=== PATIENT | female | born 1960 | race Caucasian/White ===

== ENCOUNTER 2022-03-06 15:58 | Emergency (ER) | payer OTHER ==
[~2022-03-06] VITALS: Ht 162.6 cm; Wt 90.7 kg
[2022-03-06] MEDS ORDERED: LABETALOL HCL 200 MG TAB PO ONE (16:30)
[2022-03-06] MEDS ORDERED: cloNIDine HCL 0.1 MG TAB PO ONE (17:00)
[2022-03-06 17:31] LABS: Basophils # (auto) 0.1 10 ^3/uL (0-0.2); Basophils % (auto) 0.9 % (0.0-2.0); Eosinophils # (auto) 0.2 10 ^3/uL (0-0.8); Eosinophils % (auto) 1.6 % (0.0-7.0); Hematocrit 43.2 % (36.0-46.0); Hemoglobin 14.9 g/dL (12.2-16.2); Lymphocytes # (auto) 3.2 10 ^3/uL (0.4-5.4); Lymphocytes % (auto) 27.8 % (10.0-50.0); Mean Corpuscular Hemoglobin 30.3 pg (28.0-32.0); Mean Corpuscular Hgb Conc. 34.4 g/dL (32.0-36.0); Mean Corpuscular Volume 87.9 fL (80.0-100.0); Monocytes # (auto) 0.5 10 ^3/uL (0-1.3); Monocytes % (auto) 4.1 % (0.0-12.0); Neutrophils # (auto) 7.6 10 ^3/uL (1.6-8.6); Neutrophils % (auto) 65.6 % (37.0-80.0); Nucleated Red Blood Cells % 0.1 %; Red Blood Cells 4.91 10^6/uL (4.0-5.20); Red Cell Distribution Width 13.5 % (11.8-14.3); White Blood Cell 11.6 10^3/uL (4.4-10.8)
[2022-03-06 17:51] LABS: INR 0.98 (0.9-1.15); Partial Thromboplastin Time 26.2 sec (23.6-33.0)
[2022-03-06 17:52] LABS: Albumin 3.5 g/dL (3.4-5.0); BUN/Creatinine Ratio 6.7; Magnesium 2.3 mg/dL (1.6-2.6); Potassium 3.4 mmol/L (3.5-5.1)
[2022-03-06 17:55] LABS: Bilirubin, Total 0.2 mg/dL (0.2-1.0); Total Protein 7.3 g/dL (6.4-8.2)
[2022-03-06] MEDS ORDERED: hydrALAZINE HCL 20 MG/ML VL IV ONE (18:00)
[2022-03-06] MEDS ORDERED: OLME40TA26 PO (18:23)
[2022-03-06] MEDS ORDERED: ATEN-60 PO (18:23)
[2022-03-06 19:00] VITALS: BP 150/85
== END 2022-03-06 19:06 | disposition home or self-care (01) ==
LOC: ER 15:58
DX: E87.6 Hypokalemia (principal); I10 Essential (primary) hypertension; F17.210 Nicotine dependence, cigarettes, uncomplicated
CPT/HCPCS: 36415; 71045; 80053; 83735; 84484; 85025; 85610; 85730; 93005; 96374; 99285; J0360

== ENCOUNTER 2022-03-07 22:18 | Emergency (ER) | payer OTHER ==
[~2022-03-07] VITALS: Ht 162.6 cm; Wt 90.7 kg
[~2022-03-07 22:18] MED LIST: ATEN-60 PO; OLME40TA26 PO
[2022-03-07] MEDS ORDERED: cloNIDine HCL 0.1 MG TAB PO ONE (22:45)
[2022-03-07 23:19] LABS: Basophils # (auto) 0 10 ^3/uL (0-0.2); Basophils % (auto) 0.2 % (0.0-2.0); Eosinophils # (auto) 0.3 10 ^3/uL (0-0.8); Eosinophils % (auto) 2.9 % (0.0-7.0); Hematocrit 43.2 % (36.0-46.0); Hemoglobin 14.9 g/dL (12.2-16.2); Lymphocytes # (auto) 3.9 10 ^3/uL (0.4-5.4); Lymphocytes % (auto) 40.2 % (10.0-50.0); Mean Corpuscular Hemoglobin 30.8 pg (28.0-32.0); Mean Corpuscular Hgb Conc. 34.5 g/dL (32.0-36.0); Mean Corpuscular Volume 89.5 fL (80.0-100.0); Monocytes # (auto) 0.6 10 ^3/uL (0-1.3); Monocytes % (auto) 6.1 % (0.0-12.0); Neutrophils # (auto) 4.9 10 ^3/uL (1.6-8.6); Neutrophils % (auto) 50.6 % (37.0-80.0); Red Blood Cells 4.83 10^6/uL (4.0-5.20); Red Cell Distribution Width 13.3 % (11.8-14.3); White Blood Cell 9.7 10^3/uL (4.4-10.8)
[2022-03-07 23:34] LABS: Albumin 3.5 g/dL (3.4-5.0); Calcium 9.5 mg/dL (8.5-10.1); Potassium 4.1 mmol/L (3.5-5.1)
[2022-03-07 23:38] LABS: Bilirubin, Total 0.3 mg/dL (0.2-1.0); Total Protein 7.3 g/dL (6.4-8.2)
[2022-03-08 00:50] VITALS: BP 151/80
== END 2022-03-08 00:55 | disposition home or self-care (01) ==
LOC: ER 22:18
DX: I16.0 Hypertensive urgency (principal); F17.210 Nicotine dependence, cigarettes, uncomplicated; I10 Essential (primary) hypertension
CPT/HCPCS: 36415; 70450; 80053; 84484; 85025; 93005

== ENCOUNTER 2025-02-03 20:50 | Emergency (ER) | payer OTHER, MEDICARE ==
[~2025-02-03] VITALS: Ht 162.6 cm; Wt 70.0 kg
[~2025-02-03 20:50] MED LIST changes: -OLME40TA26 PO; +OLME40TA78 PO
[2025-02-03 22:36] VITALS: TEMP 98.9
[2025-02-03 22:41] VITALS: PULSE 76; RESP 19; O2SAT 97
[2025-02-03] MEDS: ASPirin 325 MG TAB PO ONE (22:41)
[2025-02-03] MEDS: cloNIDine HCL 0.1 MG TAB PO ONE (22:41)
[2025-02-03 22:58] LABS: Basophils # (auto) 0 10 ^3/uL (0-0.2); Basophils % (auto) 0.5 % (0.0-2.0); Eosinophils # (auto) 0.2 10 ^3/uL (0-0.8); Eosinophils % (auto) 2.3 % (0.0-7.0); Hematocrit 47.8 % (36.0-46.0); Lymphocytes % (auto) 38.3 % (10.0-50.0); Mean Corpuscular Hemoglobin 30.6 pg (28.0-32.0); Mean Corpuscular Hgb Conc. 33.4 g/dL (32.0-36.0); Mean Corpuscular Volume 91.7 fL (80.0-100.0); Monocytes # (auto) 0.6 10 ^3/uL (0-1.3); Monocytes % (auto) 6.1 % (0.0-12.0); Neutrophils # (auto) 5.6 10 ^3/uL (1.6-8.6); Neutrophils % (auto) 52.8 % (37.0-80.0); Nucleated Red Blood Cells % 0.1 %; Platelet Count (auto) 219 10^3/uL (140-450); Red Blood Cells 5.21 10^6/uL (4.0-5.20); Red Cell Distribution Width 13.2 % (11.8-14.3); White Blood Cell 10.6 10^3/uL (4.4-10.8)
[2025-02-03 23:07] LABS: Urine Bacteria FEW /hpf (None Seen); Urine Blood TRACE /uL (Negative); Urine Clarity Clear (Clear); Urine Color Light-Yellow (Yellow); Urine Protein, UAD Negative (Negative); Urine Specific Gravity 1.015 (1.001-1.035); Urine Squamous Epithelial Cell FEW /hpf (<5); Urine Urobilinogen Normal (Negative); Urine WBC 2 /HPF (0-5); Urine pH 5.5 (5.0-9.0)
--- NOTE | 2025-02-03 23:09 | DVH ---
EXAM: XY CHEST PORTABLE DATE OF SERVICE: 02/03/2025 10:51 PM ORDERING PHYSICIAN: DORYS NINO REASON FOR EXAM: cp TECHNIQUE: Single frontal view of the chest COMPARISON: CHEST PORTABLE on DOS: 03/06/22 Findings: Lungs are well expanded without infiltrates or effusions. Heart is normal in size. Trachea is midline patient has had an anterior fusion of the cervical spine. IMPRESSION: 1. No acute findings
[2025-02-03 23:32] LABS: Sodium 140 mmol/L (136-145)
[2025-02-03 23:33] LABS: Anion Gap 9 (5-15); Calcium 10.2 mg/dL (8.7-10.4); Carbon Dioxide 22 mmol/L (20-31)
[2025-02-03 23:38] LABS: Blood Urea Nitrogen 13 mg/dL (9-23); Glucose 93 mg/dL (74-106)
[2025-02-03 23:39] LABS: Chloride 109 mmol/L (98-107); Potassium 3.5 mmol/L (3.5-5.1)
[2025-02-04 00:02] VITALS: BP 184/75
--- NOTE | 2025-02-04 00:17 | ED.PDOC ---
History of Present Illness HPI Comments 64 y/o F, with a history of depression, HTN, and tobacco abuse, presents with c/o HTN and chest-wall pain, today. Patient endorses on noticing her blood pressure being elevated in addition to unprovoked onset of chest pain, today, after experiencing "hot flashes, fogged thoughts, and pressure-like headaches" for the past 2x days. Patient admits to being stressed, lately, in addition running out of her 50mg Atenolol medication she takes once per day. She denies any current shortness of breath, headache, vision or speech changes, nausea, vomiting, or other associated symptoms or modifiers at this time. Chief Complaint: High Blood Pressure Time Seen by MD: 22:15 Primary Care Provider: Emerson Mckeon Notes: Nurses Notes, Medications, Allergies Allergies: Coded Allergies: NO KNOWN ALLERGIES (Unverified , 03/06/22) Home Meds Active Scripts Atenolol (Atenolol) 25 Mg Tab, 1 TAB PO DAILY for 30 Days, #30 TAB 5 Refills Prov:CARLO KELLY MD 03/06/22 Olmesartan Medoxomil (Benicar) 40 Mg Tab, 1 TAB PO DAILY for 30 Days, #30 TAB 5 Refills Prov:CARLO KELLY MD 03/06/22 Information Source: Patient Mode of Arrival: Ambulatory Past Medical History PAST MEDICAL HISTORY: Depression, HTN Surgical History: Denies all surgeries NEGATIVE DEVELOPER History: Denies all NEGATIVE DEVELOPER Hx Family History Family History: Reviewed,noncontributory to illness Social History Smoker: Cigarettes Alcohol: Occasionally Drugs: Denies Drug Use Lives In: Home All Other Systems: Reviewed and Negative (Comprehensive systems review obtained and negative except for what is stated in the HPI.) Physical Exam General Appearance: Normal, Other (tearful) HEENT: Normal ENT Inspection, Pharynx Normal, TMs Normal Neck: Full Range of Motion, Non-Tender, Normal, Normal Inspection Respiratory: Chest Non-Tender, Lungs Clear, No Accessory Muscle Use, No Respiratory Distress, Normal Breath Sounds Cardiovascular: No Edema, No JVD, No Murmur, No Gallop, Normal Peripheral Pulses, Regular Rate/Rhythm Breast Exam: Deferred Gastrointestinal: No Organomegaly, Non Tender, No Pulsatile Mass, Normal Bowel Sounds, Soft Genitalia: Deferred Pelvic: Deferred Rectal: Deferred Extremities: No calf tenderness, Normal capillary refill, Normal inspection, Normal range of motion, Non-tender, No pedal edema Musculoskeletal : Apperance: Normal Neurologic: Alert, seafood clerk II-XII nml as Tested, No Motor Deficits, Normal Affect, Normal Mood, No Sensory Deficits Cerebellar Function: Normal Reflexes: Normal Skin: Dry, Normal Color, Warm Lymphatic: No Adenopathy Was a procedure done? Was a procedure done?: No Differential Dx Considerations may include: HTN emergency, HTN essential, medication noncompliance, LA, PE, ACS, among others X-Ray, Labs, Meds, VS Vital Signs Date Time Temp Pulse Resp B/P (MAP) Pulse Ox O2 Delivery O2 Flow Rate FiO2 02/04/25 00:04 185/87 02/04/25 00:02 184/75 (111) 02/03/25 22:41 76 19 97 Room Air* 0 21 02/03/25 22:41 165/87 02/03/25 22:36 98.9 98 19 165/89 (114) 100 98.9 02/03/25 21:10 98.6 56 18 202/104 (136) 99 98.6 Lab Test 02/03/25 23:23 02/03/25 22:54 02/03/25 22:19 Range/Units Troponin I High Sensitivity 6 4 </=34 ng/L Urine Color Light-yellow Yellow Urine Clarity Clear Clear Urine pH 5.5 5.0-9.0 Urine Specific [place] 1.015 1.001-1.035 Urine Protein Negative Negative Urine Ketones Negative Negative Urine Blood Trace H Negative /uL Urine Nitrite Negative Negative Urine Bilirubin Negative Negative Urine Urobilinogen Normal Negative mg/dL Urine Leukocyte Esterase Trace Negative /uL Urine RBC 1 0 - 4 /hpf Urine Microscopic WBC 2 0-5 /HPF Urine Squamous Epithelial Cells Few <5 /hpf Urine Bacteria Few H None Seen /hpf Urine Glucose Normal Normal mg/dL White Blood Count 10.6 4.4-10.8 10^3/uL Red Blood Count 5.21 H 4.0-5.20 10^6/uL Hemoglobin 16.0 12.2-16.2 g/dL Hematocrit 47.8 H 36.0-46.0 % Mean Corpuscular Volume 91.7 80.0-100.0 fL Mean Corpuscular Hemoglobin 30.6 28.0-32.0 pg Mean Corpuscular Hemoglobin Concent 33.4 32.0-36.0 g/dL Red Cell Distribution Width 13.2 11.8-14.3 % Platelet Count 219 140-450 10^3/uL Mean Platelet Volume 8.5 6.9-10.8 fL Neutrophils (%) (Auto) 52.8 37.0-80.0 % Lymphocytes (%) (Auto) 38.3 10.0-50.0 % Monocytes (%) (Auto) 6.1 0.0-12.0 % Eosinophils (%) (Auto) 2.3 0.0-7.0 % Basophils (%) (Auto) 0.5 0.0-2.0 % Neutrophils # (Auto) 5.6 1.6-8.6 10 ^3/uL Lymphocytes # (Auto) 4.0 0.4-5.4 10 ^3/uL Monocytes # (Auto) 0.6 0-1.3 10 ^3/uL Eosinophils # (Auto) 0.2 0-0.8 10 ^3/uL Basophils # (Auto) 0 0-0.2 10 ^3/uL Nucleated Red Blood Cells 0.1 % Sodium Level 140 136-145 mmol/L Potassium Level 3.5 3.5-5.1 mmol/L Chloride Level 109 H 98-107 mmol/L Carbon Dioxide Level 22 20-31 mmol/L Anion Gap 9 5-15 Blood Urea Nitrogen 13 9-23 mg/dL Creatinine 0.93 0.550-1.02 mg/dL Glomerular Filtration Rate Calc 68 >90 mL/min BUN/Creatinine Ratio 14.0 10.0-20.0 Serum Glucose 93 74-106 mg/dL Calcium Level 10.2 8.7-10.4 mg/dL Current Medications Medications (Trade) Dose Ordered Sig/Christine Route Start Time Stop Time Status Last Admin Aspirin 325 mg ONCE ONCE PO 02/03/25 22:30 02/03/25 22:31 DC 02/03/25 22:41 Clonidine HCl (Catapres Tablet) 0.1 mg ONCE ONCE PO 02/03/25 22:30 02/03/25 22:31 DC 02/03/25 22:[address] [address] Ph: [phone] DIAGNOSTIC IMAGING Diagnostic Imaging Report : [id number] Signed PATIENT: RAUL BOYLE ACCT: [id number] UNIT: [id number] : 1960 LOC: ER ROOM / BED: / AGE / SEX: 64 / F ADM STATUS: REG ER SERVICE 16 ORDERING PHYSICIAN: DORYS NINO MD PROCEDURE(s): CXRP - CHEST PORTABLE REASON: cp ORDER NUMBER(s): [id number], ACCESSION NUMBER(s): [id number] EXAM: XY CHEST PORTABLE DATE OF SERVICE: 02/03/2025 10:51 PM ORDERING PHYSICIAN: DORYS NINO REASON FOR EXAM: cp TECHNIQUE: Single frontal view of the chest COMPARISON: CHEST PORTABLE on DOS: 03/06/22 Findings: Lungs are well expanded without infiltrates or effusions. Heart is normal in size. Trachea is midline patient has had an anterior fusion of the cervical spine. IMPRESSION: 1. No acute findings ATED BY: UVALDO ZACARIAS MD DICTATED DATE/TIME: 02/03/252306 SIGNED BY: UVALDO ZACARIAS MD SIGNED DATE/TIME: 02/03/252306 CC: Time of 1ST Reevaluation: 22:45 Reevaluation 1ST: Unchanged Reevaluation 2ND: Improved Patient Education/Counseling: Diagnosis, Treatment, Prognosis, Need For Follow Up Family Education/Counseling: No Family Present Additional Information Previous visit documents reviewed: March 07, 2022 encounter for hypertensive urgency The following tests were ordered, and results were reviewed by me: UA, EKG, troponin, BMP, CXR, CBC Additional Information was gathered from interviewing the following independent historians: n/a I reviewed and agreed with the following test results read by other providers: CXR I discussed treatment and results with medical personnel and: Patient Departure 1 Departure Time of Disposition: 00:53 Impression: Primary Impression: Hypertension Qualified Codes: I10 - Essential (primary) hypertension Additional Impressions: Stress reaction Medication refill Disposition: HOME / SELF CARE / HOMELESS Condition: Good e-Prescriptions Atenolol (Tenormin) 50 Mg Tab 50 MG PO DAILY for 30 Days, #30 TAB Prov: DORYS NINO MD 02/04/25 Discharged With: Self Critical Care Note Critical Care Time?: No Stability Stability form required: No Heart Score Heart Score: Heart Score Response (Comments) Value History Slightly Suspicious 0 EKG Normal 0 Age >65 2 Risk Factors 1 or 2 risk factors 1 Troponin Normal limit 0 Total 3 I personally scribed for DORYS NINO MD ([email or web address]) on 02/04/25 at 00:17. Electronically submitted by Dc Lazo ([email or web address]). DORYS NINO MD Feb 04, 2025 00:17
[2025-02-04] MEDS ORDERED: ATEN50TA80 PO (00:54)
[2025-02-04] MEDS: cloNIDine HCL 0.1 MG TAB PO ONE (01:13)
--- NOTE | 2025-02-04 11:15 | ECG ---
[facility] Test Date: 2025-02-03 Test Time: 22:20:05 Pat Name: RAUL BOYLE Department: ER Room: Gender: F Billing Auditor: JACQUI : 1960 Requested By: DORYS NINO Order Number: [id number] Reading MD: Measurements Intervals [place] Rate: 58 P: 42 MN: 172 QRS: 24 QRSD: 91 T: 47 QT: 464 QTc: 456 Interpretive Statements Sinus rhythm Baseline wander in lead(s) V5 Please click the below link to view image of tracing.
--- NOTE | 2025-02-04 12:38 | ECG ---
[facility] Test Date: 2025-02-04 Test Time: 11:15:19 Pat Name: RAUL BOYLE Department: ED Room: Gender: F Automotive Worker Foreman: tran : 1960 Requested By: DORYS NINO Order Number: [id number] Reading MD: Measurements Intervals [place] Rate: 52 P: 64 GA: 194 QRS: 50 QRSD: 90 T: 60 QT: 506 QTc: 471 Interpretive Statements Sinus arrhythmia Please click the below link to view image of tracing.
--- NOTE | 2025-02-04 16:51 | DVH ---
CT BRAIN WITHOUT CONTRAST HISTORY: htn TECHNIQUE: Axial scans were obtained from the skull base through the vertex without contrast. [place] l and coronal reformats were generated. One or more of the following radiation dose reduction techniq ues were used for this examination: automated exposure control, adjustment of the mA and/or kV accord ing to patient size, use of iterative reconstruction technique. CTDI = 56.45 mGy and DLP = 999.51 mGy cm COMPARISON: HEAD WITHOUT CONTRAST on DOS: 03/07/22 FINDINGS: Prior study of March 2022 demonstrates evidence for multiple lacunar infarcts involving the basal gangl ia bilaterally barbour-white matter differentiation is normal and there is no significant atrophy. In th e current study lacunar infarcts in the basal ganglia are appreciated bilaterally with no evidence fo r an acute infarct. Barbour-white matter differentiation is normal no evidence for significant atrophy. There is no evidence for intracranial fluid collection or hemorrhage Paranasal sinuses and mastoid air cells internal auditory canals and middle ears appear to be general ly unremarkable. There is minimal sinus disease seen in the left sphenoid sinus and also in the most posterior right ethmoid air cell. The calvarium is intact . IMPRESSION: There is sinus disease particularly in the left sphenoid air cell and there is a minimal sinus diseas e in the most posterior right ethmoid air cell. There is evidence for old lacunar infarcts in the basal ganglia which unchanged from prior study. If more imaging is required I would recommend MRI exam.
[2025-02-04] MEDS ORDERED: DOCU-265 PO (17:29)
[2025-02-04] MEDS ORDERED: PROP1TAB51 PO (17:38)
[2025-02-04] MEDS ORDERED: MIRT1TAB38 PO (17:38)
== END 2025-02-04 01:18 | disposition home or self-care (01) ==
LOC: ER 20:57
DX: I10 Essential (primary) hypertension (principal); R07.89 Other chest pain; F43.9 Reaction to severe stress, unspecified; F17.210 Nicotine dependence, cigarettes, uncomplicated; F32.A Depression, unspecified; Z76.0 Encounter for issue of repeat prescription; Z79.899 Other long term (current) drug therapy
CPT/HCPCS: 36415; 70450; 71045; 80048; 81001; 84484; 85025; 93005

== ENCOUNTER 2025-02-04 11:12 | Inpatient (IN) | payer OTHER, MEDICARE ==
[~2025-02-04] VITALS: Ht 162.6 cm; Wt 71.6 kg
[~2025-02-04 11:12] MED LIST changes: +ATEN50TA80 PO
--- NOTE | 2025-02-04 11:26 | ED.PDOC ---
HPI Comments HTN: 64 y.o female presents to the ED via EMS for an evaluation of hypertension. Patient reports for the past five days, she has experienced fogginess, dizziness, and bilateral arm numbness. Patient decided to check her blood pressure last night and states it was elevated. Patient reports compliance to BP medication although did not take dose last night as she came into the hospital for same complaint. Patient reports similar symptoms in the past associated with high blood pressure, She denies any chest pain, headaches, vision changes, nausea, vomiting, fever or chills. Patient was seen here last night, diagnosed with Essential (primary) hypertension and discharged home. Patient at that time told ED physician she ran out of her 50mg Atenolol medication and had medication refilled last night. Patient also mentions PCP placing her on a new antidepressant named mirtazapine, has been taking it for the past 4 days with side effects. Patient called PCP and was told to reduce intake to half a tablet per day. Additionally, patient is on propanol and Inderal Vitals: BP: 158/82 HR: 54 Temp: 98.1 F SPO2: 100% RA RR: 16 Allergies: None Past Medical History: Anxiety, depression and HTN Past Surgical History: Back Allergies: None REVIEW OF SYSTEMS: CONSTITUTIONAL: Denies acute: fever, diaphoresis, chills, HEAD: Denies acute: headache, photophobia Eyes: Denies acute: Double vision, vision loss, eye pain, eye discharge. EARS: Denies acute: tinnitus, hearing loss, ear discharge, ear pain, THROAT: Denies acute: sore throat, swelling, difficulty swallowing , pain with swallowing, change in voice. NECK: Denies acute: neck pain, neck swelling, stiff neck. HEART: Denies acute : chest pain, palpitations, LUNGS: Denies acute: SOB, wheezing, cough, hemoptysis ABDOMEN: Denies acute: abdominal pain, Nausea, Vomiting, diarrhea, melena , hematemesis, hematochezia SKIN: Denies acute: rash, redness, lesions, itchiness. EXTREMITIES: Denies acute: calf pain, weakness, denies pain in extremity. Denies acute: Low back pain. Neuro: Denies acute: focal neurological deficit, motor or sensory focal neurological deficit, tremors, seizure like activity, confusion, change in mental status, loss of bowel or bladder function, cauda equina like symptoms. : Denies acute: dysuria, hematuria, flank pain, increase in urinary frequency. PSYCH: Denies acute: hallucination, suicidal ideation, homicidal ideation. FEMALE: Denies acute: abnormal vaginal bleeding, foul odor, unusual discharge. PHYSICAL EXAM: General: ----[id number]----acute distress, awake and alert. Head: normocephalic, atraumatic. Neck: supple, trachea is midline, no swelling. Throat: Normal phonation. Eyes:, no erythema, no purulent discharge, no proptosis, no icterus. Heart: regular rate, regular rhythm, no significant murmur appreciated. Lungs: no apparent respiratory distress, Able to speak in full sentences. No wheezing, no rhonchi, no crackles. No stridors Clear to auscultation bilaterally. Abdomen: non tender to palpation, non distended, soft, no guarding, no rebound, + bowel sounds. Neuro: Awake, Alert, oriented to name, self, situation, follows commands GCS=15. Speech is normal. Skin: no petechia, no purpura, no cyanosis, non-pale, not jaundice. Lower extremities: --no - Pitting edema no deformity, no focal swelling, no calf TTP. Makes eye contact. moves all four extremities. Face: no apparent facial droop. ED COURSE: Chief Complaint: High Blood Pressure Time Seen by MD: 11:22 Primary Care Provider: Emerson Reviewed Notes: Nurses Notes, Medications, Allergies Allergies: Coded Allergies: NO KNOWN ALLERGIES (Unverified , 03/06/22) Home Meds Active Scripts Atenolol (Tenormin) 50 Mg Tab, 50 MG PO DAILY for 30 Days, #30 TAB Prov:DORYS NINO MD 02/04/25 Reported Medications Propranolol HCl (Propranolol Hydrochloride) 10 Mg Tab, 1 TAB PO BIDPRN PRN 02/04/25 Mirtazapine (Mirtazapine Oral Disintegrating Tablet) 15 Mg Tab, 1 TAB PO DAILY 02/04/25 Docusate Sodium (Docusate Sodium) 100 Mg Cap, 1 CAP PO BID 02/04/25 Discontinued Scripts Atenolol (Atenolol) 25 Mg Tab, 1 TAB PO DAILY for 30 Days, #30 TAB 5 Refills Prov:CARLO KELLY MD 03/06/22 Olmesartan Medoxomil (Benicar) 40 Mg Tab, 1 TAB PO DAILY for 30 Days, #30 TAB 5 Refills Prov:CARLO KELLY MD 03/06/22 Information Source: Patient, Emergency Med Personnel Past Medical History PAST MEDICAL HISTORY: Depression, HTN Surgical History: Denies all surgeries 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 Was a procedure done?: No CP Differential Dx Differential Diagnosis: N/A Differential Diagnosis: Other (DDX include renal disease, thyroid disease, electrolyte abnormality, increased salt intake, medications non-compliance, undiagnosed HTN, Hypertensive crisis, hypertensive urgency., drug toxicity.) Differential Diagnosis: Other (Ddx include but not limitied to gastritis, musculoskeletal pain, radiculopathy, atypical chest pain, dissection, aneurysm, ACS, unstable angina, hiatal hernia, GERD, anxiety, costochondritis, PE, pneumothroax, neoplasm, cardiac ischemia, drug abuse, anemia.) X-Ray, Labs, Meds, VS Vital Signs Date Time Temp Pulse Resp B/P (MAP) Pulse Ox O2 Delivery O2 Flow Rate FiO2 02/04/25 14:32 56 02/04/25 14:22 57 17 138/93 (108) 96 02/04/25 11:25 98.1 54 16 158/82 (107) 100 98.1 02/04/25 11:15 52 Lab Test 02/04/25 14:35 02/04/25 12:57 02/04/25 12:50 02/04/25 11:42 Range/Units Troponin I High Sensitivity 4 4 4 </=34 ng/L Urine Color Colorless Yellow Urine Clarity Clear Clear Urine pH 5.0 5.0-9.0 Urine Specific [place] 1.005 1.001-1.035 Urine Protein Negative Negative Urine Ketones Negative Negative Urine Blood Trace H Negative /uL Urine Nitrite Negative Negative Urine Bilirubin Negative Negative Urine Urobilinogen Normal Negative mg/dL Urine Leukocyte Esterase Negative Negative /uL Urine RBC <1 0 - 4 /hpf Urine Microscopic WBC < 1 0-5 /HPF Urine Squamous Epithelial Cells Few <5 /hpf Urine Bacteria Few H None Seen /hpf Urine Glucose Normal Normal mg/dL White Blood Count 8.1 4.4-10.8 10^3/uL Red Blood Count 5.02 4.0-5.20 10^6/uL Hemoglobin 15.5 12.2-16.2 g/dL Hematocrit 45.8 36.0-46.0 % Mean Corpuscular Volume 91.1 80.0-100.0 fL Mean Corpuscular Hemoglobin 30.9 28.0-32.0 pg Mean Corpuscular Hemoglobin Concent 33.9 32.0-36.0 g/dL Red Cell Distribution Width 13.1 11.8-14.3 % Platelet Count 150 140-450 10^3/uL Mean Platelet Volume 8.8 6.9-10.8 fL Neutrophils (%) (Auto) 62.6 37.0-80.0 % Lymphocytes (%) (Auto) 27.8 10.0-50.0 % Monocytes (%) (Auto) 5.9 0.0-12.0 % Eosinophils (%) (Auto) 2.5 0.0-7.0 % Basophils (%) (Auto) 1.2 0.0-2.0 % Neutrophils # (Auto) 5.1 1.6-8.6 10 ^3/uL Lymphocytes # (Auto) 2.3 0.4-5.4 10 ^3/uL Monocytes # (Auto) 0.5 0-1.3 10 ^3/uL Eosinophils # (Auto) 0.2 0-0.8 10 ^3/uL Basophils # (Auto) 0.1 0-0.2 10 ^3/uL Nucleated Red Blood Cells 0.3 % Sodium Level 136 136-145 mmol/L Potassium Level 4.3 3.5-5.1 mmol/L Chloride Level 110 H 98-107 mmol/L Carbon Dioxide Level 21 20-31 mmol/L Anion Gap 5 5-15 Blood Urea Nitrogen 10 9-23 mg/dL Creatinine 0.82 0.550-1.02 mg/dL Glomerular Filtration Rate Calc 79 >90 mL/min BUN/Creatinine Ratio 12.2 10.0-20.0 Serum Glucose 97 74-106 mg/dL Lactic Acid Level 1.0 0.4-2.0 mmol/L Calcium Level 10.2 8.7-10.4 mg/dL Total Bilirubin 0.3 0.2-1.0 mg/dL Aspartate Amino Transferase (AST) 24 13-40 U/L Alanine Aminotransferase (ALT) 14 7-40 U/L Alkaline Phosphatase 119 H 46-116 U/L B-Type Natriuretic Peptide 43.74 0-100 pg/mL Total Protein 7.4 5.7-8.2 g/dL Albumin 4.6 3.2-4.8 g/dL [place] [address] Ph: [phone] DIAGNOSTIC IMAGING Diagnostic Imaging Report : [id number] Signed PATIENT: RAUL BOYLE ACCT: [id number] UNIT: [id number] : 1960 LOC: ER ROOM / BED: / AGE / SEX: 64 / F ADM STATUS: REG ER SERVICE 1126 ORDERING PHYSICIAN: MAHIN ZHONG DO PROCEDURE(s): CXRP - CHEST PORTABLE REASON: HTN ORDER NUMBER(s): [id number], ACCESSION NUMBER(s): [id number] EXAM: XY CHEST PORTABLE Indication: pain Technique: Single frontal view of the chest was obtained Comparison: XY CHEST PORTABLE on DOS: 02/03/25, CHEST PORTABLE on DOS: 03/06/22, CXRP on DOS: 03/06/22 FINDINGS: Lines and Tubes: None Lungs: No focal consolidation. Pleura: No effusion. No pneumothorax. Cardiomediastinal contours: Unremarkable Bones: No acute osseous abnormality. IMPRESSION: No acute cardiopulmonary disease. ATED BY: KATE CASTILLO MD DICTATED DATE/TIME: 02/04/250 SIGNED BY: KATE CASTILLO MD SIGNED DATE/TIME: 02/04/251209 CC: Time of 1ST Reevaluation: 16:21 (The case was discussed with the [facility] admitting team (HPI, physical exam, labs and diagnostic tests that were available at the time of disposition, ED course, treatment plan) on the phone. They agreed to transfer the patient to their service by ALS for further evaluation and treatment. Dr. Calvo Authorization number [id number]-) Reevaluation 1ST: Improved Patient Education/Counseling: Diagnosis, Treatment Family Education/Counseling: Other Comments Patient presented with the above HPI.---bilateral shoulder numbness tingling and hypertension---workup was initiated. patient was found with the above mentioned diagnosis. the following medications were ordered: please refer to order lists of meds and tests obtained by myself Dr. Zhong. Patient ED course and VS have been stabilized. Patient has been reassessed in the ED and remained in a stable condition. Pertinent incidental findings were discussed with the patient and/or family. Patient/family voices understanding and is agreeable with plan. Patient has been observed in the ED adequate length of time to insure improvement/stability. Escalation of care considered: Consideration of escalation to observation or admission Patient was transferred to [facility] per insurance requirement for further evaluation and treatment of her presentation. All the reports of any imaging studies that were ordered by myself were reviewed by myself. Departure 1 Departure Time of Disposition: 15:51 Impression: Primary Impression: Anginal equivalent Additional Impression: Hypertension Disposition: 02 SHORT TERM HOSPITAL Admit to: [facility] Condition: Guarded Discharged With: Self Critical Care Note Critical Care Time?: No Heart Score Heart Score: Heart Score Response (Comments) Value History Moderate Suspicious 1 EKG Normal 0 Age >65 2 Risk Factors >3 or Hx ASHD 2 Troponin Normal limit 0 Total 5 I personally scribed for MAHIN ZHONG DO ([email or web address]) on 02/04/25 at 11:26. Electronically submitted by Marleni Griffin ([facility]). I personally scribed for MAHIN ZHONG DO ([email or web address]) on 02/04/25 at 11:33. Electronically submitted by Marleni Griffin ([facility]). I personally scribed for MAHIN ZHONG DO ([email or web address]) on 02/04/25 at 11:52. Electronically submitted by Marleni Griffin ([facility]). I personally scribed for MAHIN ZHONG DO ([email or web address]) on 02/04/25 at 12:36. Electronically submitted by Marleni Griffin ([facility]). I personally scribed for MAHIN ZHONG DO ([email or web address]) on 02/04/25 at 12:53. Electronically submitted by Marleni Griffin ([facility]). MAHIN ZHONG DO Feb 04, 2025 11:26
[2025-02-04 12:05] LABS: Basophils # (auto) 0.1 10 ^3/uL (0-0.2); Basophils % (auto) 1.2 % (0.0-2.0); Eosinophils # (auto) 0.2 10 ^3/uL (0-0.8); Eosinophils % (auto) 2.5 % (0.0-7.0); Hematocrit 45.8 % (36.0-46.0); Hemoglobin 15.5 g/dL (12.2-16.2); Lymphocytes # (auto) 2.3 10 ^3/uL (0.4-5.4); Lymphocytes % (auto) 27.8 % (10.0-50.0); Mean Corpuscular Hemoglobin 30.9 pg (28.0-32.0); Mean Corpuscular Hgb Conc. 33.9 g/dL (32.0-36.0); Mean Corpuscular Volume 91.1 fL (80.0-100.0); Monocytes # (auto) 0.5 10 ^3/uL (0-1.3); Monocytes % (auto) 5.9 % (0.0-12.0); Neutrophils # (auto) 5.1 10 ^3/uL (1.6-8.6); Neutrophils % (auto) 62.6 % (37.0-80.0); Nucleated Red Blood Cells % 0.3 %; Platelet Count (auto) 150 10^3/uL (140-450); Red Blood Cells 5.02 10^6/uL (4.0-5.20); Red Cell Distribution Width 13.1 % (11.8-14.3); White Blood Cell 8.1 10^3/uL (4.4-10.8)
--- NOTE | 2025-02-04 12:12 | DVH ---
EXAM: XY CHEST PORTABLE Indication: pain Technique: Single frontal view of the chest was obtained Comparison: XY CHEST PORTABLE on DOS: 02/03/25, CHEST PORTABLE on DOS: 03/06/22, CXRP on DOS: 03/06/22 FINDINGS: Lines and Tubes: None Lungs: No focal consolidation. Pleura: No effusion. No pneumothorax. Cardiomediastinal contours: Unremarkable Bones: No acute osseous abnormality. IMPRESSION: No acute cardiopulmonary disease.
[2025-02-04 12:21] LABS: Alanine Aminotransferase 14 U/L (7-40); Albumin 4.6 g/dL (3.2-4.8); Anion Gap 5 (5-15); Aspartate Aminotransferase 24 U/L (13-40); BUN/Creatinine Ratio 12.2 (10.0-20.0); Bilirubin, Total 0.3 mg/dL (0.2-1.0); Blood Urea Nitrogen 10 mg/dL (9-23); Calcium 10.2 mg/dL (8.7-10.4); Carbon Dioxide 21 mmol/L (20-31); Glucose 97 mg/dL (74-106); Potassium 4.3 mmol/L (3.5-5.1); Sodium 136 mmol/L (136-145); Total Protein 7.4 g/dL (5.7-8.2)
[2025-02-04 12:23] LABS: Alkaline Phosphatase 119 U/L (46-116); Chloride 110 mmol/L (98-107)
[2025-02-04 13:16] LABS: Urine Bacteria FEW /hpf (None Seen); Urine Blood TRACE /uL (Negative); Urine Clarity Clear (Clear); Urine Color Colorless (Yellow); Urine Protein, UAD Negative (Negative); Urine Specific Gravity 1.005 (1.001-1.035); Urine Squamous Epithelial Cell FEW /hpf (<5); Urine Urobilinogen Normal (Negative); Urine WBC < 1 /HPF (0-5)
[2025-02-04] MEDS: NITROGLYCERIN 0.4 MG SL TAB SL ONE (13:45)
[2025-02-04] MEDS: ASPirin-EC 325mg tab PO ONE (14:24)
[2025-02-04] MEDS ORDERED: DOCU-265 PO (17:29)
[2025-02-04] MEDS ORDERED: MORPHINE SULFATE INJ 2 MG/ml SYRG IV PRN (17:30)
[2025-02-04] MEDS ORDERED: NITROGLYCERIN 0.4 MG SL TAB SL PRN (17:30)
[2025-02-04] MEDS ORDERED: DOCUSATE SOD 100 MG CAP PO PRN (17:30)
[2025-02-04] MEDS ORDERED: PROP1TAB51 PO (17:38)
[2025-02-04] MEDS ORDERED: MIRT1TAB38 PO (17:38)
--- NOTE | 2025-02-04 17:46 | DVHHP2 ---
History of Present Illness Reason for Visit: Hypertension History of Present Illness Sigrid Foote is a 64-year-old female with past medical history of hypertension, anxiety, and depression who came in with complaints of hypertension. Patient states she has been under a significant amount of stress and that has been increasing her blood pressure. She recently went to her primary care provider regarding this and was given propranolol for anxiety and a new depression medication. Patient states that after 4 days of taking the depression medication she called her primary care provider due to feeling weird. Her doctor told her to take 1/2 a pill a day for the next week. The patient also noted that her blood pressure was elevated. She states she has been taking her blood pressure medications. Last night her blood pressure continued to be elevated and she was experiencing a headache so she came to the hospital. She states they gave her a dose of her normal medication of Atenolol, then a couple hours later another dose and sent her home. She states that last night she was waking up feeling like her heart was stopping. Today her blood pressure increased again and the patient was not sure if she could take another dose of her medication due to getting 2 last night so she came back to the ER. Patient is bradycardic and hypertensive in ER. Cardiovascular: HTN Psych: Anxiety, Depression Past Surgical History: Other (neck and back surgery), Tubal Ligation Smoke: <1 pack per day ALCOHOL: rare Drugs: Marijuana Lives: with Family Domestic Violence: Neg Review of Systems Constitutional: Yes: Other (Headache); No: Fever, Chills, Sweats, Weakness, Malaise Eyes: No: Pain, Vision change, Conjunctivae inflammation, Eyelid inflammation, Other, Redness ENT: No: Ear pain, Ear discharge, Nose pain, Nose discharge, Nose congestion, Mouth pain, Mouth swelling, Throat pain, Throat swelling, Other Respiratory: No: Cough, Dry, Shortness of breath, SOB with excertion, Wheezing, Hemoptysis, Pleuritic Pain, Sputum, Wheezing, Other Cardiovascular: Other (Hypertension); No: Chest Pain, Palpitations, Orthopnea, Paroxysmal Noc. Dyspnea, Edema, Lt Headedness Gastrointestinal: No: Nausea, Vomiting, Abdominal Pain, Diarrhea, Constipation, Melena, Hematochezia, Other Genitourinary: No Dysuria, No Frequency, No Incontinence, No Hematuria, No Retention, No Other Musculoskeletal: No: other, neck pain, shoulder pain, arm pain, back pain, hand pain, leg pain, foot pain Skin: No: Rash, Lesions, Jaundice, Bruising, Other Neurological: No: Weakness, Numbness, Incoordination, Change in speech, Confusion, Seizures, Other Allergies: Coded Allergies: NO KNOWN ALLERGIES (Unverified , 03/06/22) Medications Current Medications Medications Dose Ordered Sig/Christine Route Start Time Stop Time Status Last Admin Dose Admin Acetaminophen/ Hydrocodone Bitart 1 tab Q4HP PRN PO 02/04/25 17:30 UNV Ondansetron HCl 4 mg Q4HP PRN IV 02/04/25 17:30 UNV Docusate Sodium 100 mg BIDPRN PRN PO 02/04/25 17:30 UNV Acetaminophen 650 mg Q6HP PRN PO 02/04/25 17:30 UNV Nitroglycerin 0.4 mg Q5MINP PRN SL 02/04/25 17:30 UNV Exam Vital Signs Vital Signs Date Time Temp Pulse Resp B/P (MAP) Pulse Ox O2 Delivery O2 Flow Rate FiO2 02/04/25 14:32 56 02/04/25 14:22 17 138/93 (108) 96 02/04/25 11:25 98.1 98.1 General Appearance: Alert, Oriented X3, Cooperative, mild distress HEENT: Atraumatic, PERRLA, Mucous membr. moist/pink Respiratory: Clear to auscultation, Normal air movement Cardiovascular: Normal S1, Normal S2, No murmurs, Other (Bradycardia) Abdominal: Normal bowel sounds, Soft, No tenderness, No hepatospenomegaly Extremities: No clubbing, No cyanosis, No edema, Normal pulses Skin: No rashes, No breakdown, No significant lesion Neuro: Normal gait, Normal speech, Strength at 5/5 X4 ext Psych/Mental Status: Mental status NL, Mood NL Labs/Xrays Labs Test 02/04/25 14:35 02/04/25 12:50 02/04/25 11:42 Range/Units Troponin I High Sensitivity 4 </=34 ng/L Urine Color Colorless Yellow Urine Clarity Clear Clear Urine pH 5.0 5.0-9.0 Urine Specific [place] 1.005 1.001-1.035 Urine Protein Negative Negative Urine Ketones Negative Negative Urine Blood Trace H Negative /uL Urine Nitrite Negative Negative Urine Bilirubin Negative Negative Urine Urobilinogen Normal Negative mg/dL Urine Leukocyte Esterase Negative Negative /uL Urine RBC <1 0 - 4 /hpf Urine Microscopic WBC < 1 0-5 /HPF Urine Squamous Epithelial Cells Few <5 /hpf Urine Bacteria Few H None Seen /hpf Urine Glucose Normal Normal mg/dL White Blood Count 8.1 4.4-10.8 10^3/uL Red Blood Count 5.02 4.0-5.20 10^6/uL Hemoglobin 15.5 12.2-16.2 g/dL Hematocrit 45.8 36.0-46.0 % Mean Corpuscular Volume 91.1 80.0-100.0 fL Mean Corpuscular Hemoglobin 30.9 28.0-32.0 pg Mean Corpuscular Hemoglobin Concent 33.9 32.0-36.0 g/dL Red Cell Distribution Width 13.1 11.8-14.3 % Platelet Count 150 140-450 10^3/uL Mean Platelet Volume 8.8 6.9-10.8 fL Neutrophils (%) (Auto) 62.6 37.0-80.0 % Lymphocytes (%) (Auto) 27.8 10.0-50.0 % Monocytes (%) (Auto) 5.9 0.0-12.0 % Eosinophils (%) (Auto) 2.5 0.0-7.0 % Basophils (%) (Auto) 1.2 0.0-2.0 % Neutrophils # (Auto) 5.1 1.6-8.6 10 ^3/uL Lymphocytes # (Auto) 2.3 0.4-5.4 10 ^3/uL Monocytes # (Auto) 0.5 0-1.3 10 ^3/uL Eosinophils # (Auto) 0.2 0-0.8 10 ^3/uL Basophils # (Auto) 0.1 0-0.2 10 ^3/uL Nucleated Red Blood Cells 0.3 % Sodium Level 136 136-145 mmol/L Potassium Level 4.3 3.5-5.1 mmol/L Chloride Level 110 H 98-107 mmol/L Carbon Dioxide Level 21 20-31 mmol/L Anion Gap 5 5-15 Blood Urea Nitrogen 10 9-23 mg/dL Creatinine 0.82 0.550-1.02 mg/dL Glomerular Filtration Rate Calc 79 >90 mL/min BUN/Creatinine Ratio 12.2 10.0-20.0 Serum Glucose 97 74-106 mg/dL Lactic Acid Level 1.0 0.4-2.0 mmol/L Calcium Level 10.2 8.7-10.4 mg/dL Total Bilirubin 0.3 0.2-1.0 mg/dL Aspartate Amino Transferase (AST) 24 13-40 U/L Alanine Aminotransferase (ALT) 14 7-40 U/L Alkaline Phosphatase 119 H 46-116 U/L B-Type Natriuretic Peptide 43.74 0-100 pg/mL Total Protein 7.4 5.7-8.2 g/dL Albumin 4.6 3.2-4.8 g/dL EXAM: XY CHEST PORTABLE FINDINGS: Lines and Tubes: None Lungs: No focal consolidation. Pleura: No effusion. No pneumothorax. Cardiomediastinal contours: Unremarkable Bones: No acute osseous abnormality. IMPRESSION: No acute cardiopulmonary disease. Assessment/Plan Assessment/Plan Assessment: Hypertensive urgency, Bradycardia, Depression, Anxiety, Plan: Admit to Tele, Stop Atenolol and Propranolol due to bradycardia, Start Norvasc, Consider cardiology consult, Home medications reconciled, Plan discussed with: Patient My Orders Orders - LOBO HENSON Procedure Category Date Status Time Admit ADMIT 02/04/25 Transmitted 17:25 Code Status CODE 02/04/25 Transmitted 17:25 2 Gm Sodium Diet DIET 02/04/25 Transmitted Dinner Hydrocodone-Acet PHA 02/04/25 Logged 5/325mg Tab (Street 17:30 Ondansetron Hcl PHA 02/04/25 Logged (Zofran) 17:30 Docusate Sodium PHA 02/04/25 Logged Capsule (Colace 17:30 Complete Blood Count LAB 02/05/25 Verified 04:00 Comprehensive LAB 02/05/25 Verified Metabolic Panel 04:00 Condition: Critical PILI 02/04/25 In Process 17:25 Acetaminophen Tablet PHA 02/04/25 Logged (Tylenol Tablet) 17:30 Nitroglycerin PHA 02/04/25 Logged Sublingual (Ntrostat 17:30 Morphine Sulfate PHA 02/04/25 Transmitted Injection 17:30 Stat Ekg For Chest PILI 02/04/25 In Process Pain 17:25 Notify Of Changes PILI 02/04/25 In Process From Base 17:25 Dental Director For PILI 02/04/25 In Process 24 Hours 17:25 Emergency Dysrhythmia PILI 02/04/25 In Process Protocol 17:25 Rhythm Strips Once PILI 02/04/25 In Process Every Shift 17:25 Oxygen By Nasal RT 02/04/25 Transmitted Cannula 17:25 Docusate Sodium PHA 02/04/25 Verified Capsule (Colace 22:00 Date of Service: Feb 04, 2025 Billing Provider: LOBO HENSON Common Visit Codes: 41430-KWGLDOH INP/OBS CARE (MOD) LOBO HENSON Feb 04, 2025 17:45
[2025-02-04 18:41] VITALS: BP 134/80; PULSE 62; RESP 18; TEMP 98.1; O2SAT 100
[2025-02-04 20:00] VITALS: BP 147/76; PULSE 53; RESP 18; TEMP 97.7; O2SAT 98
[2025-02-04] MEDS: HYDROcodone-ACET 5/325MG TAB PO PRN (20:43)
[2025-02-04 22:55] VITALS: BP 143/74; PULSE 62; RESP 18; TEMP 97.8; O2SAT 99
[2025-02-04] MEDS: DOCUSATE SOD 100 MG CAP PO SCH (23:35)
[2025-02-04] MEDS: ACETAMINOPHEN 325 MG TAB PO PRN (23:36)
[2025-02-05] VITALS (8 sets, daily range): BP systolic 113–155; BP diastolic 53–88; PULSE 44–74; RESP 18–19; TEMP 97.3–97.9; O2SAT 97–99
[2025-02-05] MEDS: ONDANSETRON HCL 4 MG/2 ML VIAL IV PRN (02:49)
[2025-02-05 05:46] LABS: Basophils # (auto) 0 10 ^3/uL (0-0.2); Basophils % (auto) 0.6 % (0.0-2.0); Eosinophils # (auto) 0.2 10 ^3/uL (0-0.8); Hematocrit 43.5 % (36.0-46.0); Hemoglobin 14.6 g/dL (12.2-16.2); Lymphocytes % (auto) 51.3 % (10.0-50.0); Mean Corpuscular Hemoglobin 30.9 pg (28.0-32.0); Mean Corpuscular Hgb Conc. 33.5 g/dL (32.0-36.0); Mean Corpuscular Volume 92.2 fL (80.0-100.0); Monocytes # (auto) 0.4 10 ^3/uL (0-1.3); Monocytes % (auto) 5.6 % (0.0-12.0); Neutrophils # (auto) 3.1 10 ^3/uL (1.6-8.6); Neutrophils % (auto) 39.5 % (37.0-80.0); Nucleated Red Blood Cells % 0.1 %; Platelet Count (auto) 184 10^3/uL (140-450); Red Blood Cells 4.72 10^6/uL (4.0-5.20); Red Cell Distribution Width 12.9 % (11.8-14.3); White Blood Cell 7.8 10^3/uL (4.4-10.8)
[2025-02-05 06:04] LABS: Alanine Aminotransferase 11 U/L (7-40); Albumin 4.1 g/dL (3.2-4.8); Alkaline Phosphatase 102 U/L (46-116); Anion Gap 7 (5-15); Aspartate Aminotransferase 17 U/L (13-40); BUN/Creatinine Ratio 17.1 (10.0-20.0); Blood Urea Nitrogen 14 mg/dL (9-23); Carbon Dioxide 24 mmol/L (20-31); Glucose 85 mg/dL (74-106); Potassium 3.7 mmol/L (3.5-5.1); Sodium 141 mmol/L (136-145); Total Protein 6.5 g/dL (5.7-8.2)
[2025-02-05 06:05] LABS: Bilirubin, Total 0.4 mg/dL (0.2-1.0)
[2025-02-05 06:16] LABS: Chloride 110 mmol/L (98-107)
[2025-02-05] MEDS: amLODIPine BESYLATE 5 MG TAB PO SCH (10:00)
[2025-02-05] MEDS: amLODIPine BESYLATE 5 MG TAB PO ONE (10:40)
--- NOTE | 2025-02-05 10:56 | DVHDS2 ---
Discharge Summary Date of Admission Feb 04, 2025 at 17:25 Date of Discharge: Feb 05, 2025 Labs/Diagnostic Data: Laboratory Results Test 02/05/25 05:05 02/04/25 14:35 02/04/25 12:50 02/04/25 11:42 White Blood Count 7.8 10^3/uL (4.4-10.8) Red Blood Count 4.72 10^6/uL (4.0-5.20) Hemoglobin 14.6 g/dL (12.2-16.2) Hematocrit 43.5 % (36.0-46.0) Mean Corpuscular Volume 92.2 fL (80.0-100.0) Mean Corpuscular Hemoglobin 30.9 pg (28.0-32.0) Mean Corpuscular Hemoglobin Concent 33.5 g/dL (32.0-36.0) Red Cell Distribution Width 12.9 % (11.8-14.3) Platelet Count 184 10^3/uL (140-450) Mean Platelet Volume 8.2 fL (6.9-10.8) Neutrophils (%) (Auto) 39.5 % (37.0-80.0) Lymphocytes (%) (Auto) 51.3 % (10.0-50.0) Monocytes (%) (Auto) 5.6 % (0.0-12.0) Eosinophils (%) (Auto) 3.0 % (0.0-7.0) Basophils (%) (Auto) 0.6 % (0.0-2.0) Neutrophils # (Auto) 3.1 10 ^3/uL (1.6-8.6) Lymphocytes # (Auto) 4.0 10 ^3/uL (0.4-5.4) Monocytes # (Auto) 0.4 10 ^3/uL (0-1.3) Eosinophils # (Auto) 0.2 10 ^3/uL (0-0.8) Basophils # (Auto) 0 10 ^3/uL (0-0.2) Nucleated Red Blood Cells 0.1 % Sodium Level 141 mmol/L (136-145) Potassium Level 3.7 mmol/L (3.5-5.1) Chloride Level 110 mmol/L (98-107) Carbon Dioxide Level 24 mmol/L (20-31) Anion Gap 7 (5-15) Blood Urea Nitrogen 14 mg/dL (9-23) Creatinine 0.82 mg/dL (0.550-1.02) Glomerular Filtration Rate Calc 79 mL/min (>90) BUN/Creatinine Ratio 17.1 (10.0-20.0) Serum Glucose 85 mg/dL (74-106) Calcium Level 10.0 mg/dL (8.7-10.4) Total Bilirubin 0.4 mg/dL (0.2-1.0) Aspartate Amino Transferase (AST) 17 U/L (13-40) Alanine Aminotransferase (ALT) 11 U/L (7-40) Alkaline Phosphatase 102 U/L (46-116) Total Protein 6.5 g/dL (5.7-8.2) Albumin 4.1 g/dL (3.2-4.8) Troponin I High Sensitivity 4 ng/L (</=34) Urine Color Colorless (Yellow) Urine Clarity Clear (Clear) Urine pH 5.0 (5.0-9.0) Urine Specific [place] 1.005 (1.001-1.035) Urine Protein Negative (Negative) Urine Ketones Negative (Negative) Urine Blood Trace /uL (Negative) Urine Nitrite Negative (Negative) Urine Bilirubin Negative (Negative) Urine Urobilinogen Normal mg/dL (Negative) Urine Leukocyte Esterase Negative /uL (Negative) Urine RBC <1 /hpf (0 - 4) Urine Microscopic WBC < 1 /HPF (0-5) Urine Squamous Epithelial Cells Few /hpf (<5) Urine Bacteria Few /hpf (None Seen) Urine Glucose Normal mg/dL (Normal) Lactic Acid Level 1.0 mmol/L (0.4-2.0) B-Type Natriuretic Peptide 43.74 pg/mL (0-100) Other Laboratory Tests 02/05/25 05:05 Brief Hx & Hospital Course: see dictated note Condition at Discharge: Fair Final Diagnosis/Problems List htn, bradycardia Discharge Disposition: Acute Care Facility Discharge Instruct/Medications Diet: Cardiac 2g Na,low cholest Activity: No Restrictions, As Tolerated Follow Up/Referral: fu with neola Medications: per jan Discharge Statement: "Patient was advised to return to the ER or call 911 if any headaches, dizziness, shortness of breath, chest pain, abdominal pain, bleeding, fevers, or worsening of medical condition. Patient was counseled about treatment plan, medications, possible side effects, patientverbalized understanding. All questions were answered to the best of my ability. This discharge took greater then 30 minutes in planning, reviewing documentation, counseling the patient, and discussing with other team members." ASSESSMENT ASSESSMENT Assessment htn, bradycardia Date of Service: Feb 05, 2025 Billing Provider: TITO FAJARDO MD Common Visit Codes: 86787-WPI/OBS DISCH DAY >30min TITO FAJARDO MD Feb 05, 2025 10:56
--- NOTE | 2025-02-05 11:01 | CODING ---
Date of Service: Feb 05, 2025 Billing Provider: TITO FAJARDO MD Common Visit Codes: 42455-RLW/OBS DISCH DAY >30min Secondary Visit Codes: 99594-GSHFL CHNG SMOKING >10MIN TITO FAJARDO MD Feb 05, 2025 11:01
--- NOTE | 2025-02-05 11:15 | DVHDS ---
DATE OF DISCHARGE: 02/05/2025 TRANSFER SUMMARY HISTORY OF PRESENT ILLNESS: The patient is a 64-year-old lady who came with a history of elevated blood pressure of 220/120 and generalized anxiety and not feeling well. She has a history of depression that was recently diagnosed. The patient has a history of tobacco abuse. HOSPITAL COURSE: The patient had improvement in her blood pressure. She has been bradycardic with heart rate as low in the 40s. The patient had a chest x-ray that is unremarkable. The patient will now be transferred to [place] for further management. FINAL DIAGNOSES: Therefore, * Hypertensive urgency. * Anxiety/depression. * Bradycardia. * Tobacco abuse, for which the patient was advised to quit smoking. Time spent was 11 minutes. Time spent in discharge planning was 38 minutes. MD ROBERT Li/JOSEF TID: [id number] RECEIPT: [id number]
[2025-02-05] MEDS ORDERED: buPROPion HCL 75 MG TAB PO ONE (15:15)
[2025-02-05] MEDS: ALPRAZolam 0.25 MG TAB PO PRN (16:45)
[2025-02-05 17:19] LABS: COVID19 ANTIGEN SOFIA FIA NEGATIVE (NEGATIVE)
[2025-02-05] MEDS: Ensure HIGH Protein Chocolate 8oz Bottle PO SCH (18:00)
[2025-02-06 01:00] VITALS: BP 122/61; PULSE 56; RESP 18; TEMP 97.6; O2SAT 96
[2025-02-06 05:00] VITALS: BP 111/64; PULSE 53; RESP 17; TEMP 97.6; O2SAT 97
[2025-02-06 06:16] VITALS: BP 111/64; PULSE 53; RESP 17; TEMP 97.6; O2SAT 97
[2025-02-06 08:18] VITALS: BP 108/68; PULSE 74; RESP 15; TEMP 97.7; O2SAT 97
== END 2025-02-06 09:13 | disposition short-term general hospital (02) | DRG 305 ==
LOC: EDBD 11:12 → ER 11:12 → OVERFLOW 17:25 → TELE-CENTR 23:00
PROVIDERS: ADMIT Internal Medicine Geriatric Medicine; ATTEND Internal Medicine Geriatric Medicine
DX: I16.0 Hypertensive urgency (principal); F32.A Depression, unspecified; I20.89 Other forms of angina pectoris; F17.210 Nicotine dependence, cigarettes, uncomplicated; F41.1 Generalized anxiety disorder; Z71.6 Tobacco abuse counseling; Z79.899 Other long term (current) drug therapy
CPT/HCPCS: 36415; 71045; 80053; 81001; 83605; 83880; 84484; 85025; 87081; 87426; 96374; G0378; J2405